=== PATIENT | female | born 1955 | race Caucasian/White ===

== ENCOUNTER → 2021-11-14 | Emergency (ER) | payer MEDICARE, MEDICAID ==
[~2021-11-14] VITALS: Ht 152.4 cm; Wt 68.2 kg
[~2021-11-14] MED LIST: HYDR-3965 PO; morphine 4 MG/ML inj SYRINge IM ONE; ondansetron 4mg rapidly disintigrating tab PO ONE
== END | disposition home or self-care (01) ==
LOC: ER 08:57
DX: M16.11 Unilateral primary osteoarthritis, right hip (principal); E11.9 Type 2 diabetes mellitus without complications; G89.29 Other chronic pain; F12.10 Cannabis abuse, uncomplicated; Z88.8 Allergy status to other drugs, medicaments and biological substances; Z79.899 Other long term (current) drug therapy; S09.90XA Unspecified injury of head, initial encounter
CPT/HCPCS: 70450; 73502; 73564; 96372; 99284; J2270

== ENCOUNTER 2021-11-24 08:11 | Emergency (ER) | payer MEDICARE, MEDICAID ==
[2021-11-24] MEDS ORDERED: oxyCODONE/APAP 5-325mg tablet PO ONE (09:35)
[2021-11-24] MEDS ORDERED: OXYC-145 PO (09:39)
[2021-11-24 10:13] VITALS: BP 166/89
--- NOTE | 2021-11-24 10:21 | NUR ---
Pt triaged, seen, treated and discharged by provider. No contact with nursing staff.
== END 2021-11-24 10:29 | disposition home or self-care (01) ==
LOC: ER 08:11
DX: M19.90 Unspecified osteoarthritis, unspecified site (principal); M25.551 Pain in right hip; E11.9 Type 2 diabetes mellitus without complications; G89.29 Other chronic pain; F12.90 Cannabis use, unspecified, uncomplicated; Z98.890 Other specified postprocedural states; Z60.2 Problems related to living alone; Z88.8 Allergy status to other drugs, medicaments and biological substances; Z79.899 Other long term (current) drug therapy
CPT/HCPCS: 99283

== ENCOUNTER 2022-03-07 12:41 | Emergency (ER) | payer MEDICARE, MEDICAID ==
[~2022-03-07] VITALS: Ht 152.4 cm; Wt 60.5 kg
[~2022-03-07 12:41] MED LIST changes: +BACL10TA PO; +CARV3.1244 PO; +DICL-182 PO; +DULO30CA52 PO; -HYDR-3965 PO; +PANT20TA18 PO; +TRAM50TA2 PO; -morphine 4 MG/ML inj SYRINge IM ONE; -ondansetron 4mg rapidly disintigrating tab PO ONE
--- NOTE | 2022-03-07 14:55 | NUR ---
vas at [facility]
[2022-03-07 16:17] VITALS: BP 106/49
== END 2022-03-07 16:48 | disposition home or self-care (01) ==
LOC: ER 12:41
DX: S96.911A Strain of unspecified muscle and tendon at ankle and foot level, right foot, initial encounter (principal); M19.90 Unspecified osteoarthritis, unspecified site; G89.29 Other chronic pain; F12.90 Cannabis use, unspecified, uncomplicated; Z88.8 Allergy status to other drugs, medicaments and biological substances; X58.XXXA Exposure to other specified factors, initial encounter; Y93.89 Activity, other specified; Y92.89 Other specified places as the place of occurrence of the external cause; Y99.8 Other external cause status
CPT/HCPCS: 73620; 93971; 99284